=== PATIENT | female | born 1965 | race African-American/Black ===

== ENCOUNTER 2016-10-29 20:20 | Emergency (ER) | payer OTHER, MEDICAID ==
[~2016-10-29] VITALS: Ht 180.3 cm; Wt 63.5 kg
[2016-10-29] MEDS ORDERED: IBUPROFEN600 MG ORAL (20:48)
--- NOTE | 2016-10-29 20:53 | Emergency Room Report ---
History of Present Illness General Chief Complaint: Lower Extremity Injury Source: Patient Present Illness HPI Patient 51-year-old female presented after having increased left knee pain for the past 2 weeks. The patient reported having a fall at her left knee. Patient had continued pain for the past 2 weeks. Patient was able initially without assistance. She reported having some pain to the prepatellar area. She denied any fever. She was at taking ibuprofen with relief of pain. Pain persisted the patient became concerned. Allergies: Coded Allergies: No Known Allergies (Unverified , 10/29/16) Patient History Past Medical History: see triage record Last Menstrual Period: Menopause Now: No Reviewed Nursing Documentation: PMH: Agreed, PSxH: Agreed Nursing Documentation-PMH Past Medical History: No History, Except For Review of Systems All Other Systems: negative except mentioned in HPI Physical Exam Vital Signs Date Time Temp Pulse Resp B/P Pulse Ox O2 Delivery O2 Flow Rate FiO2 10/29/16 20:34 98.2 64 16 104/60 99 Room Air General Appearance: well appearing, no apparent distress, alert, GCS 15 Head: normocephalic, atraumatic ENT: hearing grossly normal, normal voice Neck: full range of motion, supple Respiratory: no respiratory distress, speaking full sentences Gastrointestinal: normal inspection, non tender, soft Musculoskeletal: normal inspection, no calf tenderness, other - slight prepatellar swelling no crepitance Neurologic: normal gait Psychiatric: mood/affect normal Skin: no rash Medical Decision Making Diagnostic Impression: Primary Impression: Contusion of knee, left ER Course Patient presented for knee pain. Differential diagnosis included was not limited to contusion, popliteal aneurysm, arthritis, dislocation, ligamentous injury, septic joint among others. Patient's benign exam and does not appear to require any further imaging or laboratory testing at this time. The patient is advised to follow up with primary care doctor in 1-2 days. Patient is advised to return if any worsening condition or if any changes in status that are concerning. The patient was advised to have outpatient imaging if the pain persisted. Chest X-Ray Diagnostic Results Chest X-Ray Ordered: No Last Vital Signs Date Time Temp Pulse Resp B/P Pulse Ox O2 Delivery O2 Flow Rate FiO2 10/29/16 20:34 98.2 64 16 104/60 99 Room Air Status: improved Disposition: HOME, SELF-CARE Condition: Stable Scripts Ibuprofen* (MOTRIN*) 600 Mg Tablet 600 MG ORAL Q8H Y for For Pain, #30 TAB 0 Refills Prov: Joseph Schwartz 10/29/16 Patient Instructions: Contusion Joseph Schwartz Oct 29, 2016 20:53
[2016-10-29 21:00] VITALS: BP 104/60
== END 2016-10-29 21:45 | disposition home or self-care (01) ==
LOC: EMR 21:40
DX: S80.02XA Contusion of left knee, initial encounter (principal); W19.XXXA Unspecified fall, initial encounter; Y92.89 Other specified places as the place of occurrence of the external cause
CPT/HCPCS: 99283

== ENCOUNTER 2017-08-25 14:07 | Emergency (ER) | payer MEDICAID, OTHER ==
[~2017-08-25] VITALS: Ht 180.3 cm; Wt 68.0 kg
[~2017-08-25 14:07] MED LIST: IBUPROFEN600 MG ORAL
[2017-08-25] MEDS ORDERED: NKM (14:20)
[2017-08-25 14:36] VITALS: BP 110/62
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
[2017-08-25] MEDS ORDERED: ROBAXIN500 MG PO (15:54)
[2017-08-25] MEDS ORDERED: TYLENOL EXTRA500 MG ORAL (15:54)
[2017-08-25 16:15] VITALS: BP_SYST 110; BP_SYST 98; BP_DIAS 62; BP_DIAS 63
--- NOTE | 2017-08-25 17:36 | Diagnostic Imaging Report ---
Indication: Pain Technique: XRAY Shoulder Compl L Comparison: None Findings: There is no evidence of acute fracture or dislocation. The humeral head is well-seated in the glenoid. No focal soft tissue abnormality is evident. No radiopaque foreign body seen. Imaged portions of the lungs are clear. Impression: No evidence of acute fracture or dislocation.
--- NOTE | 2017-08-25 17:41 | Diagnostic Imaging Report ---
Indication: Pain status post injury Technique: XRAY C Spine 2-3v Comparison: None Findings: There is no abnormal cervical curvature on frontal view. There is slight flattening of the cervical lordosis on lateral view. Is no evidence of acute fracture. The atlantodental intervals are symmetric. No evidence of dens fracture. There are degenerative changes of the cervical spine with disc space narrowing and productive change most pronounced at C5-C6 and C6-C7. Visualized paranasal sinuses, mastoid air cells and lung apices are clear. A 5 mm linear density projecting in the region of the esophagus may be external to the patient or may represent ingested material. Correlate clinically. IMPRESSION: No evidence of acute fracture or traumatic malalignment. Mild multilevel degenerative change of the cervical spine.
== END 2017-08-25 16:15 | disposition home or self-care (01) ==
LOC: EMR 14:47
DX: S16.1XXA Strain of muscle, fascia and tendon at neck level, initial encounter (principal); V43.52XA Car driver injured in collision with other type car in traffic accident, initial encounter; Y92.410 Unspecified street and highway as the place of occurrence of the external cause; M25.512 Pain in left shoulder
CPT/HCPCS: 72040; 99284

== ENCOUNTER 2017-12-25 13:18 | Emergency (ER) | payer OTHER ==
[~2017-12-25] VITALS: Ht 180.3 cm; Wt 76.2 kg
[~2017-12-25 13:18] MED LIST changes: +NKM; +ROBAXIN500 MG PO; +TYLENOL EXTRA500 MG ORAL
[2017-12-25 13:29] VITALS: BP 134/74
--- NOTE | 2017-12-25 13:53 | Emergency Room Report ---
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 Towards the end of the day patient felt discomfort to the right upper chest shoulder area Had pain with turning to that side This morning patient felt again re-exacerbation of that area Had gone to [facility] and presents for further evaluation Denies any pain if she does not move her right shoulder or turn to the right Denies any shortness of breath she has started smoking again after quitting Allergies: Coded Allergies: No Known Allergies (Unverified , 10/29/16) Patient History Past Medical History: see triage record Pertinent Family History: none Last Menstrual Period: 1 yrs ago Reviewed Nursing Documentation: PMH: Agreed; PSxH: Agreed Nursing Documentation-PMH Past Medical History: No History, Except For Review of Systems All Other Systems: negative except mentioned in HPI Physical Exam Vital Signs Date Time Temp Pulse Resp B/P (MAP) Pulse Ox O2 Delivery O2 Flow Rate FiO2 12/25/17 13:21 98.2 70 18 134/74 100 Room Air 98.2 Sp02 EP Interpretation: reviewed, normal General Appearance: well appearing, no apparent distress Head: normocephalic, atraumatic Eyes: bilateral eye PERRL, bilateral eye EOMI ENT: hearing grossly normal, normal pharynx, TMs + canals normal, uvula midline Neck: full range of motion, supple, no meningismus, no bony tend Respiratory: lungs clear, normal breath sounds, no rhonchi, no respiratory distress, no retraction, no accessory muscle use Cardiovascular #1: normal peripheral pulses, regular rate, rhythm, no edema, no gallop, no JVD, no murmur, other - Some reproducible discomfort to palpation of the right midclavicular upper chest region Gastrointestinal: normal bowel sounds, non tender, soft, no mass, no organomegaly, non-distended, no guarding, no hernia, no pulsatile mass, no rebound Genitourinary: no CVA tenderness Musculoskeletal: normal inspection Neurologic: oriented x3, responsive, waterworks supervisor III-XII nml as tested, motor strength/ tone normal, sensory intact Psychiatric: mood/affect normal Skin: normal color, no rash, warm/dry, palpation normal Lymphatic: normal inspection, no adenopathy Medical Decision Making Diagnostic Impression: Primary Impression: Chest pain Additional Impressions: Rhabdomyolysis Dehydration Muscle strain ER Course Patient is a fairly complex patient with multiple differential to consideration including but not limited to cardiac cardiopulmonary and vascular emergencies Patient does have significant reproducibility with palpation and movement At this time the patient's troponin was negative however total CK is elevated patient had been working extended period yesterday likely leading to dehydration Patient is able to tolerate oral intake At this time is discussed regarding the need for appropriate hydration And close outpatient follow-up Labs Test 12/25/17 13:50 White Blood Count 5.0 K/UL (4.8-10.8) Red Blood Count 4.19 M/UL (4.20-5.40) Hemoglobin 12.5 G/DL (12.0-16.0) Hematocrit 38.6 % (37.0-47.0) Mean Corpuscular Volume 92 FL (80-99) Mean Corpuscular Hemoglobin 29.7 PG (27.0-31.0) Mean Corpuscular Hemoglobin Concent 32.3 G/DL (32.0-36.0) Red Cell Distribution Width 12.7 % (11.6-14.8) Platelet Count 243 K/UL (150-450) Mean Platelet Volume 6.4 FL (6.5-10.1) Neutrophils (%) (Auto) 50.0 % (45.0-75.0) Lymphocytes (%) (Auto) 37.2 % (20.0-45.0) Monocytes (%) (Auto) 7.2 % (1.0-10.0) Eosinophils (%) (Auto) 4.8 % (0.0-3.0) Basophils (%) (Auto) 0.8 % (0.0-2.0) Sodium Level 141 MMOL/L (136-145) Potassium Level 4.4 MMOL/L (3.5-5.1) Chloride Level 107 MMOL/L (98-107) Carbon Dioxide Level 28 MMOL/L (21-32) Anion Gap 6 mmol/L (5-15) Blood Urea Nitrogen 18 mg/dL (7-18) Creatinine 0.9 MG/DL (0.55-1.30) Estimat Glomerular Filtration Rate > 60 mL/min (>60) Glucose Level 105 MG/DL (74-106) Calcium Level 8.8 MG/DL (8.5-10.1) Total Bilirubin 0.4 MG/DL (0.2-1.0) Aspartate Amino Transf (AST/SGOT) 52 U/L (15-37) Alanine Aminotransferase (ALT/SGPT) 72 U/L (12-78) Alkaline Phosphatase 79 U/L (46-116) Total Creatine Kinase 1952 U/L (26-308) Creatine Kinase MB 11.0 NG/ML (0.0-3.6) Creatine Kinase MB Relative Index 0.5 Troponin I 0.000 ng/mL (0.000-0.056) Total Protein 6.9 G/DL (6.4-8.2) Albumin 3.1 G/DL (3.4-5.0) Globulin 3.8 g/dL Albumin/Globulin Ratio 0.8 (1.0-2.7) EKG Diagnostic Results Rate: normal Rhythm: NSR ST Segments: no acute changes Rhythm Strip Diag. Results EP Interpretation: yes Rate: 67 Rhythm: NSR, no PVC's, no ectopy Chest X-Ray Diagnostic Results Chest X-Ray Diagnostic Results : Chest X-Ray Ordered: Yes # of Views/Limited/Complete: 1 View Indication: Chest Pain EP Interpretation: Yes Interpretation: no consolidation, no effusion, no pneumothorax - Some mild bilateral atelectasis nonspecific Impression: No acute disease - Nonspecific atelectasis Electronically Signed by: Celestino Frazier DO Last Vital Signs Date Time Temp Pulse Resp B/P (MAP) Pulse Ox O2 Delivery O2 Flow Rate FiO2 12/25/17 13:29 98.2 62 18 134/74 100 Room Air 98.2 Status: improved Disposition: HOME, SELF-CARE Condition: Improved Scripts Methocarbamol* (ROBAXIN-750*) 750 Mg Tablet 750 MG PO TID, #21 TAB 0 Refills Prov: Celestino Fraizer DO 12/25/17 Ibuprofen* (MOTRIN*) 600 Mg Tablet 600 MG ORAL Q8H PRN for For Pain, #20 TAB 0 Refills Prov: Celestino Frazier DO 12/25/17 Additional Instructions: Patient is provided with the discharge instructions notified to follow up with primary doctor in the next 2-3 days otherwise return to the er with any worsening symptoms. Please note that this report is being documented using [employer] technology. This can lead to erroneous entry secondary to incorrect interpretation by the dictating instrument. Celestino Frazier DO Dec 25, 2017 13:53
[2017-12-25 14:09] LABS: BASOPHILS % (AUTO) 0.8 % (0.0-2.0); EOSINOPHILS % (AUTO) 4.8 % (0.0-3.0); HEMATOCRIT 38.6 % (37.0-47.0); HEMOGLOBIN 12.5 G/DL (12.0-16.0); LYMPHOCYTES % (AUTO) 37.2 % (20.0-45.0); MEAN CORPUSCULAR VOLUME 92 FL (80-99); MONOCYTES % (AUTO) 7.2 % (1.0-10.0); PLATELET COUNT 243 K/UL (150-450); RED BLOOD COUNT 4.19 M/UL (4.20-5.40); RED CELL DISTRIBUTION WIDTH 12.7 % (11.6-14.8)
[2017-12-25 14:20] LABS: ANION GAP 6 mmol/L (5-15); BLOOD UREA NITROGEN 18 mg/dL (7-18); CALCIUM 8.8 MG/DL (8.5-10.1); CARBON DIOXIDE 28 MMOL/L (21-32); CHLORIDE 107 MMOL/L (98-107); CREATININE 0.9 MG/DL (0.55-1.30); POTASSIUM 4.4 MMOL/L (3.5-5.1); SODIUM 141 MMOL/L (136-145)
[2017-12-25 14:34] LABS: ALANINE AMINOTRANSFERASE 72 U/L (12-78); ALBUMIN 3.1 G/DL (3.4-5.0); ALBUMIN/GLOBULIN RATIO 0.8 (1.0-2.7); ALKALINE PHOSPHATASE 79 U/L (46-116); ASPARTATE AMINO TRANSFERASE 52 U/L (15-37); BILIRUBIN,TOTAL 0.4 MG/DL (0.2-1.0); CREATINE KINASE 1952 U/L (26-308)
[2017-12-25] MEDS ORDERED: ROBAXIN-750750 MG PO (14:56)
[2017-12-25] MEDS ORDERED: IBUPROFEN600 MG ORAL (14:56)
[2017-12-25 15:05] VITALS: BP 106/70
--- NOTE | 2017-12-26 08:32 | Diagnostic Imaging Report ---
Indication: Chest pain Technique: One view of the chest Comparison: none Findings: There are bilateral basilar areas of subsegmental atelectasis. The lungs and pleural spaces are otherwise clear. The heart size is normal Impression: No acute process. Minimal bilateral basilar atelectasis
--- NOTE | 2017-12-30 14:13 | Cardiology Report ---
APPROVED REPORT EKG Measurement Heart [id number] Sinus bradycardia Right bundle branch block Borderline ECG
== END 2017-12-25 15:05 | disposition home or self-care (01) ==
LOC: EMR 13:54
DX: R07.89 Other chest pain (principal); M62.82 Rhabdomyolysis; E86.0 Dehydration; S29.011A Strain of muscle and tendon of front wall of thorax, initial encounter; X58.XXXA Exposure to other specified factors, initial encounter; Y92.9 Unspecified place or not applicable
CPT/HCPCS: 36415; 71045; 80053; 82550; 82553; 84484; 85025; 93005; 99283